=== PATIENT | female | born 1975 | race Caucasian/White ===

== ENCOUNTER → 2018-09-03 | Outpatient (CLI) | payer BC, OTHER ==
[~2018-09-03] MED LIST: HYCET 7.5 MG-3473 ML PO; HYDROCODONE-APA1 TA1 PO; LANTUS100 UNIT/M SUBQ; LISINOPRIL20 MG PO; LOVASTAT40 PO; MILK OF MA2400 MG/10 PO; MULTIVITAM9 MG/15 M1 PO; NAPROSYN500 MG PO; NOVOLOG100 UNIT/1 SUBQ; PRILOSEC10 MG PO; PRILOSEC20 MG PO
== END ==
LOC: RAD 07:21
DX: K44.9 Diaphragmatic hernia without obstruction or gangrene (principal); Z98.890 Other specified postprocedural states

== ENCOUNTER 2018-10-21 05:33 | Inpatient (IN) | payer BC, OTHER ==
[~2018-10-21] VITALS: Ht 154.9 cm; Wt 65.8 kg
[~2018-10-21 05:33] MED LIST changes: +AMITRIPTYLINE H25 M2 PO; +B12INJ IM; +OMEPRAZOLE 20 M20 M1 PO
[2018-10-21 10:16] LABS: HEMOGLOBIN 14.5 gm/dL (12.0-15.0); MCH 29.3 pg (26.0-34.0); MCHC 33.7 g/dL (28.0-37.0); RBC 4.94 mil/uL (4.20-5.00); RDW 12.3 % (10.5-14.5); WBC 6.7 thou/uL (4.0-11.0)
[2018-10-21 12:29] VITALS: BP 125/76
[2018-10-21 20:20] VITALS: BP 153/87
--- NOTE | 2018-10-22 05:02 | NUR ---
ASSUMED CARE OF PT AT 1930HRS. PT AOX4 AND CALLS FOR HELP NEEDED. POST OP VITALS WERE STABLE. SURGICAL SITE IS INTACT WITH NO DRAINAGE. PT REPORTED SOME PAIN BUT WAS COMFORTABLE WITH PRESCRIBED PAIN MEDS. PT WAS ABLE TO GET SOME SLEEP. PT AMBULATES WELL WITH MINIMAL ASSIST. PT STILL NPO, PENDING SPEECH EVAL. PT PASSED GAS BUT NO BM. IS PROVIDED AND ENCOURAGED. NO OTHER S/S OF ACUTE DISTRESS. WILL CONTINUE TO MONITOR.
[2018-10-22 05:21] LABS: HEMATOCRIT 36.2 % (37.0-47.0); MCH 29.7 pg (26.0-34.0); MCHC 34.1 g/dL (28.0-37.0); MCV 86.9 fL (80.0-100.0); RBC 4.17 mil/uL (4.20-5.00); RDW 12.5 % (10.5-14.5); WBC 10.7 thou/uL (4.0-11.0)
[2018-10-22 05:30] LABS: CALCIUM 8.5 mg/dL (8.5-10.1); CREATININE 0.7 mg/dL (0.6-1.0); POTASSIUM 4.5 mmol/L (3.5-5.1)
[2018-10-22 05:39] LABS: HEMOGLOBIN 12.4 gm/dL (12.0-15.0)
[2018-10-22 06:32] VITALS: BP 115/72
[2018-10-22] MEDS ORDERED: HYDROCODONE-ACE15 ML PO (09:47)
[2018-10-22] MEDS ORDERED: ZOFRAN ODT4 MG DISSOLVE (09:47)
--- NOTE | 2018-10-22 09:54 | O ---
[facility] [place] [address] OPERATIVE REPORT Name: TAMMY ISABEL Room #: 460-P [facility] IN M.R.#: [id number] Admission: 10/21/18 ������������������ Attend Phys: Juliette Ding MD, Discharge: ������������������ Date of : 71 Report #: [id number] THIS REPORT FOR: //name// CC: Boris Ding DATE OF SERVICE: 10/21/2018 PREOPERATIVE DIAGNOSES: 1. History of laparoscopic sleeve gastrectomy with conversion to a Jazzmine-en-Y gastrojejunostomy for duodenal obstruction. 2. Hiatal hernia. 3. Gastroesophageal reflux disease. 4. Obesity. 5. Dysphagia with nausea and vomiting due to kinking at the jejunojejunal anastomosis. POSTOPERATIVE DIAGNOSES: 1. History of laparoscopic sleeve gastrectomy with conversion to a Jazzmine-en-Y gastrojejunostomy for duodenal obstruction. 2. Type 3 paraesophageal hernia. 3. Gastroesophageal reflux disease. 4. Obesity. 5. Dysphagia with nausea and vomiting due to kinking at the jejunojejunal anastomosis. PROCEDURES PERFORMED: 1. Laparoscopic repair of a type 3 paraesophageal hernia with cruroplasty and bioresorbable mesh buttressing. 2. Laparoscopic lysis of adhesions. 3. Laparoscopic resection of the Jazzmine limb from a prior Jazzmine-en-Y gastrojejunal anastomosis. 4. Thorough esophagogastroduodenoscopy (EGD). SURGEON: Juliette Ding M.D. MACHINE ASSEMBLER: Isaiah Barakat M.D. ANESTHESIA: General endotracheal anesthesia. ESTIMATED BLOOD LOSS: Minimal (less than 5 mL). COMPLICATIONS: None appreciated. SPECIMENS: Prior Jazzmine limb to pathology. [address] [address] OPERATIVE REPORT Name: TAMMY ISABEL Room #: 460-P [facility] IN .R.#: [id number] Admission: 10/21/18 ������������������ Attend Phys: Juliette Ding MD, Discharge: ������������������ Date of : 71 Report #: [id number] INDICATIONS: The patient is a 42-year-old female who initially underwent a laparoscopic sleeve gastrectomy for morbid obesity. The patient did extremely well early on; however, because of her back pain, was taking NSAIDs and developed a duodenal obstruction thought secondary to scarring from ulcer disease through the duodenal post-pyloric channel. The patient was completely intolerant to p.o. intake and they were unable to scope through this area of obstruction and as such, she was taken to the operating room where we performed a laparoscopic Jazzmine-en-Y gastrojejunal anastomosis attaching the Jazzmine limb to the greater curvature of the newly sleeved stomach. The patient did well from that procedure; however, over the past to months because of aggressive weight loss, she has had ongoing nausea, vomiting and intolerance to p.o. intake with severe GERD. The patient has undergone upper endoscopy showing patency of her duodenum as well as the Jazzmine limb with some difficulty intubating through the jejunojejunal anastomosis. On upper GI swallow, the patient's duodenal sweep was completely patent and contrast empties readily through the [place] biliopancreatic limb; however, the Jazzmine limb has a kink at the jejunojejunal anastomosis causing backup of contrast into the gastric lumen, which exacerbates the reflux and nausea and vomiting. As her inflammatory process in her duodenum has subsided and after thorough counseling with Gastroenterology, Radiology and the patient, we have elected to proceed with a repair of her hiatal hernia as well as takedown of the Jazzmine limb to leave her with a normal anatomic sleeve gastrectomy. Intraoperative findings of a type 3 paraesophageal hernia were encountered with nearly half of the sleeved stomach within the distal mediastinum. DESCRIPTION OF PROCEDURE: After explaining the risks, benefits and alternatives of the procedure with the patient in detail in the preoperative holding area and obtaining written consent, the patient was brought to the operating room and placed supine on the operating room table. After conducting a thorough timeout procedure, verifying correct patient and procedure, the patient was given general endotracheal anesthesia. Once adequate anesthesia was obtained, her SCDs were hooked up to pneumatic compression device and she was given a preoperative dose of antibiotics in line with the SCIP protocol. The patient's abdomen was now prepped and draped in the standard surgical sterile fashion after positioning her in a low lithotomy position with her legs in the Yellofin stirrups. A 5 mL of 0.5% Marcaine with epinephrine were used to anesthetize the skin in the right upper quadrant midclavicular line in subcostal location. A #15 bladed scalpel was used to create a small skin leslie at this location. A 5 mm Visiport was placed over 0 degree 5 mm laparoscope and was introduced through this incision site. Once intra-abdominal placement was verified visually, the obturator for the trocar and laparoscope were both removed and the abdomen was insufflated to 15 mmHg using carbon dioxide gas. The laparoscope was changed to a 5-mm 30-degree laparoscope, which was reintroduced through this trocar. The entire abdomen was evaluated to ensure no injury upon entry. I now placed three trocars in the left mid abdomen. A 5 mm port was placed 3 cm cephalad to the umbilicus and 1 cm to the patient's left, a 12 mm port was placed 5 cm lateral [address] [place] [address] OPERATIVE REPORT Name: TAMMY ISABEL Room #: 460-P [facility] M.R.#: [id number] Admission: 10/21/18 ������������������ Attend Phys: Juliette Ding MD, Discharge: ������������������ Date of : 71 Report #: [id number] to that, and a final 5 mm port was placed in the extreme left lateral flank. All three additional trocars were placed under direct vision after anesthetizing the skin at each location with 5 mL of 0.5% Marcaine with epinephrine, and I had created appropriately sized skin nicks using #15 bladed scalpel. The laparoscope was removed and changed to the 5 mm port just cephalad to the umbilicus and the patient was placed in steep reverse Trendelenburg position. I now placed a Debbie liver retractor in subxiphoid location by anesthetizing the skin at that location with 5 mL of 0.5% Marcaine with epinephrine and creating a small skin leslie using #15 bladed scalpel. The Debbie retractor was maneuvered through this defect where it was positioned up under the left lobe of the liver and was held up against the posterior aspect of the anterior abdominal wall. This was fixed into position using the iron materials intern device to stabilize it. We now had complete access to the stomach and hiatal regions. We immediately identified a type 3 paraesophageal hernia with half the stomach within the distal mediastinum. As the patient was in steep reverse Trendelenburg position, a gentle manual traction was placed to reduce this back into an intraabdominal location. The pars flaccida was opened using Harmonic scalpel to identify the base of the right yen. I dissected anteriorly up the right yen using Harmonic scalpel for hemostasis. The stomach was reflected to the patient's right side and I identified the base of the left yen and in similar fashion, dissected anteriorly up the left yen using the Harmonic scalpel for hemostasis. The stomach was normalized and a retroesophageal window was made from the patient's right to left side using a laparoscopic grasper. A Juhi drain was entered into the abdomen and was pulled through this retroesophageal space where the tails were mated anteriorly and was used as a handle to provide inferior and anterior traction on the stomach. I now carried out an extensive mediastinal dissection taking down all adhesions in the mediastinum that would attempt to cause the gastric and esophageal tissues to recoil back in the mediastinum. This was carried as far cephalad as possible. I stayed well away from all esophageal tissues to prevent injury from thermal spread. Once completed, we had 3-4 cm of intraabdominal esophagus prior to the juncture of the gastroesophageal junction, and the initiation of the sleeve gastrectomy. I now repaired the hiatal defect from the type 3 paraesophageal hernia using several sutures of 0 Surgidac on the EndoStitch device posteriorly to recreate the slit valve aspect of the lower esophageal sphincter complex and bring it in approximation to the esophageal tissues without undue tightness. I then selected a piece of Phasix ST mesh measuring 6 x 8 cm in dimension. A U-shaped notch was cut out of it and was entered into the abdomen where it was maneuvered through the retroesophageal space. I then anchored this to the diaphragmatic repair using sutures of 0 Surgidac on the EndoStitch device at each of the anterior leaflets as well as one suture posteriorly to the cruroplasty. A 10 mL of Tisseel were now used on the [employer] device to weld the entire mesh to the diaphragm by folding down the corners of the mesh and spraying it prior to replacing the mesh in place. This gave us an excellently oriented meshed repair of the hiatal defect. The Juhi drain was now removed [address] [address] OPERATIVE REPORT Name: TAMMY ISABEL Room #: 460-P [facility] M.R.#: [id number] Admission: 10/21/18 ������������������ Attend Phys: Juliette Ding MD, Discharge: ������������������ Date of : 71 Report #: [id number] from the abdomen. We now assessed the Jazzmine-en-Y gastrojejunal anastomosis. The Jazzmine limb was tracked down to the jejunojejunal anastomosis where it was seen to have transient kinking suspected to be due to the patient's weight loss and paucity of mesenteric fat remaining. As her duodenal sweep was wide open, the decision was made to resect the Jazzmine limb. I now proceeded to perform an EGD with the Pollenizern upper endoscope, which was used to intubate the oropharynx and easily traversed down to the third portion of the duodenum. This was then left in place, at this juncture and after sterilely rescrubbing, proceeded to use the [place] 60 mm stapler with a blue load to transect the gastrojejunal portion of the Jazzmine limb with two firings of a blue load. This was fired right along the greater curvature of the sleeved stomach with the scope in place so as not to narrow the lumen. We then transected the jejunojejunal anastomosis right at the level of the prior JJ anastomosis using another firing of a blue load 60 stapler on the [place]. The resection specimen was then elevated and the Harmonic scalpel was used to transect the mesentery for complete hemostasis. This left a straight esophagus with a patent sleeve gastrectomy and an open duodenal sweep with patency of the [place] small bowel from the biliopancreatic limb distally. I now used 10 mL of Tisseel to coat each of the staple lines with fibrin glue. The EGD scope was used to slowly evaluate internally showing complete hemostasis and the stomach was fully desufflated. There was no further evidence of hiatal herniation and the scope passed easily through the hiatal repair. The scope was passed off the field. I now removed the resection specimen of the Jazzmine limb through the 12 mm fascial incision after gently lengthening it to 15 mm. I then closed the fascial incision using 0 PDS suture on a William-Kait suture passer device and tied this down under direct vision. The Debbie liver retractor was removed and the liver was healthy and uninjured. The abdomen was fully desufflated. All remaining trocars were removed under direct vision. A 4-0 Monocryl was used in a standard subcuticular fashion for all skin incisions and Dermabond glue was applied to all skin wounds. At the end of the procedure, all instrument, needle and sponge counts were correct. The patient tolerated the procedure without incident, was awakened in the operating room and transitioned to the recovery room in stable condition with no apparent complications. ��������������������������������������������� <ELECTRONICALLY SIGNED> ���������������������������������������� By: Juliette Ding MD, FACS ��������������������������������������������� 10/22/18 0954 [id number] Juliette Ding MD, FACS /nt
[2018-10-22 11:17] VITALS: BP 115/72
--- NOTE | 2018-10-22 14:00 | NUR ---
Assumed pt at 7am.Pt in bed resting but very irritable by the funny noise from walking on the floor and driping from bathroom faucet.House keeping called and room floor was mopped x3.Assessment completed.vss.Pt left for ugi and returned for late breakfast.Dr Ding here,order noted.Pt tolerated clear liq tray. Dc summary compile and reviewed with pt and spouse.Saline lock dc'd prior to dc home in [place] with spouse at 1400 accompanied by this rn.
--- NOTE | 2018-10-22 15:53 | EKG ---
[place] [address] [facility] [place] [address] ELECTROCARDIOGRAM REPORT Name: TAMMY ISABEL Room #: 460-P ADM IN M.R.#: [id number] ������������������ Admission: 10/21/18 ������������������ Attend Phys: Juliette Ding MD, Discharge: ������������������ Date of : 71 Report #: [id number] ����������������������������������������������������������������� [id number] THIS REPORT FOR: //name// [facility] Test Date: 2018-10-21 Test Time: 10:30:04 Pat Name: TAMMY ISABEL Department: Room: [facility] Gender: F Access Tech: EZEQUIEL : 1975 Requested By: Juliette Ding Order Number: [id number] MD: Say Bueno Measurements Intervals [place] Rate: 77 P: 75 IA: 158 QRS: 63 QRSD: 100 T: 20 QT: 384 QTc: 435 Interpretive Statements Sinus rhythm Nonspecific ST segment abnormality Compared to ECG 12/27/2015 09:54:57 No significant changes Electronically Signed On 10-22-2018 15:53:12 CDT by Say Bueno [email or web address] ��������������������������������������������� <ELECTRONICALLY SIGNED> ���������������������������������������� By: Say Bueno MD, [facility] ��������������������������������������������� 10/22/18 1553 1030 1030 Say Bueno MD, [facility] /EPI
--- NOTE | 2018-10-26 18:05 | PATH ---
[facility] [address] [place] [address] PATHOLOGY RPT PROCEDURE Name: TAMMY ISABEL Room #: 460-P [facility] IN M.R.#: [id number] ������������������ Admission: 10/21/18 ������������������ Date of : 71 Discharge: 10/22/18 Report #: [id number] Path Case #: [id number] [facility] Accession Number: [id number] . 01 Material submitted: . stomach - SHAE-EN Y GASTRIC BYPASS . 01 Clinician provided ICD-10: y . 01 Clinical history: . Hiatal hernia, Shae-en-Y . 02 Diagnosis: Stomach, laparoscopic Shae-en-Y: - Reactive changes along with marked congestion, history of hiatal hernia. . (IUV:mml; 10/26/2018) QLM/10/26/2018 . 02 Electronically signed: . Nola Mccord MD, Pathologist NPI- [id number] . 01 Gross description: . The specimen is received in formalin, labeled "Tammy Isabel, Shae-en-Y", is an unoriented segment of bowel closed by two staple line measuring 12.0 cm in length and up to 2.7 cm in diameter. One end is closed by a 3.0 cm in length staple line and the other approximately in the midportion measuring 6.0 cm in length. Opening the specimen reveals a aguirre-pink, grossly unremarkable mucosa with no discrete lesions. Representatively submitted in A1-A2. (SWS; 10/25/2018) SHS/SHS . 02 Pathologist provided ICD-10: K31.89 . 02 CPT . 768356 Specimen Comment: A courtesy copy of this report has been sent to Specimen Comment: [phone], . Specimen Comment: Report sent to / DR CARLSON Performed at: [address] [facility] [address], [place], [place] [id number] MD Brendon Aguirre MD Phone: [phone] [place] [address] PATHOLOGY RPT PROCEDURE Name: TAMMY ISABEL S Room #: 460-P DIS IN M.R.#: [id number] ������������������ Admission: 10/21/18 ������������������ Date of : 71 Discharge: 10/22/18 Report #: [id number] Path Case #: [id number] Performed at: [address] [id number] MD Nola Mccord MD Phone: [phone]
== END 2018-10-22 14:00 | disposition home or self-care (01) | DRG 327 ==
LOC: TBA 05:33 → PRE 11:41 → 4W 19:20 → ENTRNSPT 10-22 13:24 → EDTRNSPTSTS 10-22 13:44 → 4W 10-22 14:00
PROVIDERS: ADMIT Surgery
DX: K44.9 Diaphragmatic hernia without obstruction or gangrene (principal); K56.699 Other intestinal obstruction unspecified as to partial versus complete obstruction; K21.9 Gastro-esophageal reflux disease without esophagitis; E66.9 Obesity, unspecified; R13.10 Dysphagia, unspecified; Z68.27 Body mass index [BMI] 27.0-27.9, adult
CPT/HCPCS: 10047; 50010; 50101; 50249; 50386; 50555; 50558; 50739; 50740; 50962; 51437; 52182; 52265; 53307; 54022; 54118; 55326; 56462; 56525; 56526; 56531; 57092; 57155; 62110; 62900; 70005

== ENCOUNTER → 2019-04-04 | Outpatient (CLI) | payer BC, OTHER ==
[~2019-04-04] MED LIST changes: +HYDROCODONE-ACE15 ML PO; +ZOFRAN ODT4 MG DISSOLVE
== END ==
LOC: RAD 07:37
DX: K21.9 Gastro-esophageal reflux disease without esophagitis (principal); R11.2 Nausea with vomiting, unspecified; Z87.19 Personal history of other diseases of the digestive system; Z98.84 Bariatric surgery status

== ENCOUNTER → 2019-08-11 | Outpatient (CLI) | payer OTHER, BC | LOC: RAD 08:39 | DX: R13.10 Dysphagia, unspecified (principal) ==

== ENCOUNTER → 2020-11-21 | Outpatient (CLI) | payer BC, OTHER | LOC: RAD 10:34 | PROVIDERS: ATTEND Surgery | DX: R11.2 Nausea with vomiting, unspecified (principal); Z90.3 Acquired absence of stomach [part of] ==